=== PATIENT | male | born 1985 | race Caucasian/White ===

== ENCOUNTER 2022-12-29 10:00 | Outpatient (CLI) | payer BC, OTHER ==
[2022-12-29 17:50] LABS: HCT - HEMATOCRIT 45.8 % (42.0-52.0); HGB - HEMOGLOBIN 15.1 g/dL (14.0-18.0); MEAN CORPUSCULAR HEMOGLOBIN 30.5 pg (27.0-31.0); MEAN CORPUSCULAR VOLUME 92.5 fL (80.0-94.0); MEAN PLATELET VOLUME 9.1 fL (7.4-11.4); RED BLOOD COUNT 4.95 10^6/uL (4.70-6.10); RED CELL DISTRIBUTION WIDTH 12.4 % (12.0-15.0); WHITE BLOOD COUNT 7.2 x10^3/uL (4.8-10.8)
[2022-12-29 18:03] LABS: CALCIUM 9.2 mg/dL (8.5-10.3); CREATININE 0.8 mg/dL (0.6-1.2); POTASSIUM 3.8 mmol/L (3.5-5.0); URIC ACID 9.5 mg/dL (2.6-7.2)
== END 2022-12-29 10:15 | disposition home or self-care (01) ==
LOC: LAB.N 10:00
PROVIDERS: ATTEND Family Medicine
DX: R60.0 Localized edema (principal)
CPT/HCPCS: 36415; 80048; 84550; 85027; 85379; 85651

== ENCOUNTER 2022-12-29 11:57 | Outpatient (CLI) | payer BC ==
--- NOTE | 2022-12-29 12:37 | XRAY Report ---
PROCEDURE: Knee 2 View RT INDICATIONS: KNEE PAIN, RIGHT TECHNIQUE: 2 views of the right knee(s) were acquired. COMPARISON: None. FINDINGS: Bones: No fractures or dislocations. No suspicious bony lesions. Soft tissues: No joint effusion. No suspicious soft tissue calcifications. IMPRESSION: No acute bony abnormality. No significant degenerative change. Reviewed by: Alexx Torres on 12/29/2022 12:36 PM PDT Approved by: Alexx Torres on 12/29/2022 12:36 PM PDT Station ID: [id number]
--- NOTE | 2022-12-29 12:40 | XRAY Report ---
PROCEDURE: Ankle 3 View RT INDICATIONS: ANKEL PAIN,RIGHT TECHNIQUE: 3 views of the ankle were acquired. COMPARISON: None FINDINGS: Bones: No fractures or dislocations. Ankle mortise is normally aligned. No suspicious bony lesions . Soft tissues: No tibiotalar joint effusion. Achilles tendon appears normal. IMPRESSION: No acute bony abnormality. Reviewed by: Alexx Torres on 12/29/2022 12:39 PM PDT Approved by: Alexx Torres on 12/29/2022 12:39 PM PDT Station ID: [id number]
== END 2022-12-29 11:58 | disposition home or self-care (01) ==
LOC: DI 11:57
PROVIDERS: ATTEND Family Medicine
DX: M25.561 Pain in right knee (principal); M25.571 Pain in right ankle and joints of right foot; R60.0 Localized edema
CPT/HCPCS: 36415; 80048; 84550; 85027; 85379; 85651

== ENCOUNTER 2023-03-25 18:30 | Outpatient (CLI) | payer BC ==
--- NOTE | 2023-03-26 16:29 | XRAY Report ---
PROCEDURE: Knee 3 View LT INDICATIONS: PAIN IN LEFT KNEE TECHNIQUE: 3 views of the left knee(s) were acquired. COMPARISON: None. FINDINGS: Bones: No fractures or dislocations. No suspicious bony lesions. Soft tissues: Moderate knee joint effusion. No suspicious soft tissue calcifications or masses. IMPRESSION: 1. Knee joint effusion. 2. No acute fracture. No osseous lesion. If symptoms and/or clinical suspicion for pathology continue , further assessment with repeat plain films, or advanced imaging (e.g., CT, MRI, or bone scan) is re commended for further assessment. Reviewed by: Milton Bird MD on 03/26/2023 4:27 PM PDT Approved by: Milton Bird MD on 03/26/2023 4:27 PM PDT Station ID: [id number]
== END 2023-03-25 18:31 | disposition home or self-care (01) ==
LOC: DI 18:30
PROVIDERS: ATTEND Nurse Practitioner Family
DX: M25.562 Pain in left knee (principal); M25.462 Effusion, left knee